=== PATIENT | female | born 1980 | race Caucasian/White ===

== ENCOUNTER 2019-12-19 00:55 | Emergency (ER) | payer BC, OTHER ==
[~2019-12-19] VITALS: Ht 172.7 cm; Wt 86.3 kg
[2019-12-19 01:56] LABS: CLARITY,URINE HAZY; COLOR,URINE ORANGE; RBC,URINE >40 /HPF (0-2)
[2019-12-19 01:57] LABS: BACTERIA,URINE FEW /HPF (0-FEW); SQUAMOUS EPITHELIAL CELL,UR FEW /LPF
[2019-12-19] MEDS ORDERED: IV NORMAL SALINE 1,000ML 1,000 ML IV ONE (02:00)
--- NOTE | 2019-12-19 02:02 | PHYS DOC ---
General Adult EDM: Chief Complaint: ABDOMINAL PAIN HPI: HPI: 39-year-old female presents with urinary retention and dysuria. The patient had urinary frequency all day yesterday. Today she has had urinary retention. She does not feel like she is been able to pee since 4 PM. Every time she tries to go she has very little output. She also took Azo today. She has had urinary tract infection in the past, but they have not been quite this painful. She has left flank pain which was exacerbated by the drive over to the emergency room. No history of kidney stones. Denies fever or chills. Review of Systems: Review of Systems: Constitutional: Denies fever or chills Eyes: Denies change in visual acuity HENT: Denies nasal congestion or sore throat Respiratory: Denies cough or shortness of breath Cardiovascular: Denies chest pain or edema GI: Denies abdominal pain, nausea, vomiting, bloody stools or diarrhea : Dysuria, urinary retention, left flank pain Musculoskeletal: Denies back pain or joint pain Integument: Denies rash Neurologic: Denies headache, focal weakness or sensory changes Endocrine: Denies polyuria or polydipsia Lymphatic: Denies swollen glands Psychiatric: Denies depression or anxiety Heart Score: Risk Factors: Risk Factors: DM, Current or recent (<one month) smoker, HTN, HLP, family history of CAD, obesity. Risk Scores: Score 0 - 3: 2.5% MACE over next 6 weeks - Discharge Home Score 4 - 6: 20.3% MACE over next 6 weeks - Admit for Clinical Observation Score 7 - 10: 72.7% MACE over next 6 weeks - Early Invasive Strategies Allergies: Allergies: Allergies Coded Allergies Type Severity Reaction Last Updated Verified doxycycline Allergy Unknown 12/19/19 Yes prochlorperazine Allergy Unknown 12/19/19 Yes sulfamethoxazole Allergy Unknown 12/19/19 Yes trimethoprim Allergy Unknown 12/19/19 Yes Physical Exam: PE: Constitutional: Well developed, well nourished, no acute distress, non-toxic appearance. [] HENT: Normocephalic, atraumatic, bilateral external ears normal, oropharynx moist, no oral exudates, nose normal. [] Eyes: PERRLA, EOMI, conjunctiva normal, no discharge. [] Neck: Normal range of motion, no tenderness, supple, no stridor. [] Cardiovascular:Heart rate regular rhythm, no murmur [] Lungs & Thorax: Bilateral breath sounds clear to auscultation [] Abdomen: Bowel sounds normal, soft, no tenderness, no masses, no pulsatile masses. [] Skin: Warm, dry, no erythema, no rash. [] Back: No tenderness, left CVA tenderness. [] Extremities: No tenderness, no cyanosis, no clubbing, ROM intact, no edema. [] Neurologic: Alert and oriented X 3, normal motor function, normal sensory function, no focal deficits noted. [] Psychologic: Affect normal, judgement normal, mood normal. [] Current Patient Data: Labs: Laboratory Tests Test 12/19/19 01:15 Urine Collection Type U cath Urine Color Dodson Urine Clarity Hazy Urine pH Urine Specific Hammond Urine Protein (NEG-TRACE) Urine Glucose (UA) mg/dL (NEG) Urine Ketones (Stick) mg/dL (NEG) Urine Blood (NEG) Urine Nitrite (NEG) Urine Bilirubin (NEG) Urine Urobilinogen Dipstick mg/dL (0.2 mg/dL) Urine Leukocyte Esterase (NEG) Urine RBC >40 /HPF (0-2) Urine WBC 1-4 /HPF (0-4) Urine Squamous Epithelial Cells Few /LPF Urine Bacteria Few /HPF (0-FEW) EKG: EKG: [] Radiology/Procedures: Radiology/Procedures: [] Impressions: CT abdomen and pelvis without contrast PQRS statement: CT scans at this facility use dose reduction including either automated exposure control, iterative reconstructions, and /or weight based radiation dosing via mA and kV modification when appropriate to reduce radiation dose to as low as reasonably achievable. HISTORY: Left flank pain. Abdomen findings: Lung bases unremarkable. Disc bulges lower lumbar spine with spinal canal stenoses L4-5 and L5-S1. Liver, gallbladder, pancreas, adrenal glands and kidneys are unremarkable. There is limited visualization of the distal ureters due to surrounding densities of pelvic small bowel loops and pelvic vasculature, in light of this at the region of the distal left ureter there may be a 3 mm distal ureteral calculus on image 127, there is no ureteral dilation or hydronephrosis or perinephric edema evident. Appendix is negative. Subcentimeter right lower quadrant mesenteric lymph nodes may be reactive or due to low-grade mesenteric adenitis no inflammatory change evident of the mesentery. No abdominal fluid. Pelvis findings: 2.5 cm left ovarian fluid density most likely a follicle or cyst. Right ovary, uterus, rectum unremarkable. Catheter in the bladder no bladder calculi. Bones unremarkable. Numerous pelvic phleboliths. IMPRESSION: 1. 3 mm distal left ureteral calculus is suspected as described above. No hydronephrosis. 2. The appendix is negative. 3. 2.5 cm fluid density dominant follicle or cyst of the left ovary. Electronically signed by: Eleuterio Kramer MD (12/19/2019 2:33 AM) [facility] DICTATED AND SIGNED BY: ELEUTERIO KRAMER MD DATE: 12/19/19 023 CC: DYLON ABAD; FUAD SEBASTIAN DO ~ Course & Med Decision Making: Course & Med Decision Making Pertinent Labs and Imaging studies reviewed. (See chart for details) The patient CT scan shows a distal 3 mm stone that is nonobstructing. The size is likely to pass. I have given the patient a liter of normal saline. Given her use of Azo, the urinalysis results are not reliable. Given her symptoms, I will treat her with Keflex for 5 days. I have encouraged lots of fluid intake. She is stable for discharge at this time. [] Dragon Disclaimer: Dragdemetrice Disclaimer: This electronic medical record was generated, in whole or in part, using a voice recognition dictation system. Departure Departure: Impression: Primary Impression: Ureterolithiasis Additional Impression: UTI (urinary tract infection) Disposition: HOME/RESIDENCE PRIOR TO ADM Condition: STABLE Referrals: DYLON ABAD (PCP) Patient Instructions: Kidney Stones, [id number] Scripts Hydrocodone Bit/Acetaminophen (NORCO 5-325 TABLET) 1 Each Tablet 1 TAB PO PRN Q6HRS PRN for PAIN, #14 TAB 0 Refills Prov: FUAD SEBASTIAN DO 12/19/19 Cephalexin (KEFLEX) 500 Mg Capsule 1 CAP PO TID for UTI for 5 Days, #15 CAP 0 Refills Prov: FUAD SEBASTIAN DO 12/19/19 FUAD SEBASTIAN DO Dec 19, 2019 02:02
[2019-12-19 02:24] LABS: BASO # 0.1 x10^3/uL (0.0-0.2); BASO % 1 % (0-3); EOS # 0.1 x10^3/uL (0.0-0.7); EOS % 1 % (0-3); HEMATOCRIT 35.5 % (36.0-47.0); HEMOGLOBIN 11.4 g/dL (12.0-15.5); LYMPH # 2.1 x10^3/uL (1.0-4.8); LYMPH % 32 % (24-48); MEAN CORPUSCULAR HEMOGLOBIN 27 pg (25-35); MEAN CORPUSCULAR HGB CONC 32 g/dL (31-37); MEAN CORPUSCULAR VOLUME 83 fL (79-100); MONO # 0.7 x10^3/uL (0.0-1.1); MONO % 11 % (0-9); NEUT # 3.6 x10^3uL (1.8-7.7); NEUT % 55 % (31-73); PLATELET COUNT 247 x10^3/uL (140-400); RED BLOOD COUNT 4.26 x10^6/uL (3.50-5.40); RED CELL DISTRIBUTION WIDTH 13.5 % (11.5-14.5); WHITE BLOOD COUNT 6.5 x10^3/uL (4.0-11.0)
[2019-12-19 02:33] LABS: CALCIUM 9.2 mg/dL (8.5-10.1); CREATININE 0.9 mg/dL (0.6-1.0); GFR 69.7; POTASSIUM 3.7 mmol/L (3.5-5.1)
--- NOTE | 2019-12-19 02:36 | RAD ---
CT abdomen and pelvis without contrast PQRS statement: CT scans at this facility use dose reduction including either automated exposure control, iterative reconstructions, and /or weight based radiation dosing via mA and kV modification when appropriate to reduce radiation dose to as low as reasonably achievable. HISTORY: Left flank pain. Abdomen findings: Lung bases unremarkable. Disc bulges lower lumbar spine with spinal canal stenoses L4-5 and L5-S1. Liver, gallbladder, pancreas, adrenal glands and kidneys are unremarkable. There is limited visualization of the distal ureters due to surrounding densities of pelvic small bowel loops and pelvic vasculature, in light of this at the region of the distal left ureter there may be a 3 mm distal ureteral calculus on image 127, there is no ureteral dilation or hydronephrosis or perinephric edema evident. Appendix is negative. Subcentimeter right lower quadrant mesenteric lymph nodes may be reactive or due to low-grade mesenteric adenitis no inflammatory change evident of the mesentery. No abdominal fluid. Pelvis findings: 2.5 cm left ovarian fluid density most likely a follicle or cyst. Right ovary, uterus, rectum unremarkable. Catheter in the bladder no bladder calculi. Bones unremarkable. Numerous pelvic phleboliths. IMPRESSION: 1. 3 mm distal left ureteral calculus is suspected as described above. No hydronephrosis. 2. The appendix is negative. 3. 2.5 cm fluid density dominant follicle or cyst of the left ovary. Electronically signed by: Cody Kramer MD (12/19/2019 2:33 AM) [facility]
[2019-12-19 02:39] LABS: ALBUMIN 3.5 g/dL (3.4-5.0); ALBUMIN/GLOBULIN RATIO 1.1 (1.0-1.7); TOTAL BILIRUBIN 0.3 mg/dL (0.2-1.0); TOTAL PROTEIN 6.8 g/dL (6.4-8.2)
[2019-12-19] MEDS ORDERED: CEPH-264 PO (02:42)
[2019-12-19] MEDS ORDERED: HYDR-3165 PO (02:43)
[2019-12-19] MEDS ORDERED: KETOROLAC 30 MG/ML VIAL. ONE (02:54)
[2019-12-19] MEDS ORDERED: CEPHALEXIN 250 MG CAPSULE ONE (02:54)
[2019-12-19 03:00] VITALS: BP 135/84
[2019-12-19] MEDS ORDERED: KETOROLAC 30 MG/ML VIAL. IVP ONE (03:00)
[2019-12-19] MEDS ORDERED: CEPHALEXIN 250 MG CAPSULE PO ONE (03:00)
== END 2019-12-19 03:20 | disposition home or self-care (01) ==
LOC: ER 00:55
DX: N20.1 Calculus of ureter (principal); N39.0 Urinary tract infection, site not specified; Z87.442 Personal history of urinary calculi; Z88.1 Allergy status to other antibiotic agents; Z88.8 Allergy status to other drugs, medicaments and biological substances
CPT/HCPCS: 36415; 51702; 74176; 80053; 81001; 85025; 96361; 96374; 99284; J1885; J7030

== ENCOUNTER → 2020-01-03 | Outpatient (CLI) | payer OTHER ==
[2019-12-19 03:00] VITALS: BP 135/84
[~2020-01-03] MED LIST: CEPH-264 PO; HYDR-3165 PO
--- NOTE | 2020-01-03 09:13 | RAD ---
CT Abdomen and Pelvis without contrast History: Kidney stone Technique: Noncontrast CT imaging was performed of the abdomen and pelvis. Multiplanar images are reviewed. Exposure: One or more of the following individualized dose reduction techniques were utilized for this examination: 1. Automated exposure control 2. Adjustment of the mA and/or kV according to patient size 3. Use of iterative reconstruction technique. Comparison: December 19, 2019 Findings: There is some motion. There is no hydronephrosis or renal calculus. There are again multiple phleboliths in the pelvis. A previously seen small calculus in the left pelvis is no longer visualized and probably due to passage of distal ureteral calculus. Previously seen Chambers catheter has been removed. Accurate evaluation of abdominal visceral organs is limited without intravenous contrast. There is no obvious abnormality of the spleen, liver, or pancreas. Gallbladder is present without obvious intraluminal abnormality by CT. There is no adrenal nodularity. Accurate evaluation of bowel is limited without oral contrast. There is no significant free air, free fluid, bowel dilatation. There is mild colonic diverticulosis. Normal caliber appendix is visualized without adjacent inflammatory change. There is retained stool greater of the distal sigmoid colon to rectum. There are again several nonspecific mesenteric nodes although not considered significantly enlarged, largest right lower quadrant about 0.7 cm short axis dimension. Previously seen hypodense lesion of the left adnexa smaller, now about 1.2 cm versus previously about 2 cm. There is another focus of hypodensity of the left adnexa better seen on coronal images about 1.2 cm inferiorly which is fairly similar. There is inferior lumbar facet degenerative change. Impression: 1. Previously seen distal left ureteral calculus is no longer visualized. There is no hydronephrosis or renal calculus. 2. There is retained stool greater of the distal sigmoid colon and rectum. 3. Dominant hypodense presumable cyst of the left adnexa is smaller, another focus stable. Electronically signed by: Laith Harrison MD (01/03/2020 9:10 AM) [facility]
== END ==
LOC: CT 08:25
PROVIDERS: ATTEND Urology
DX: N20.1 Calculus of ureter (principal); K57.30 Diverticulosis of large intestine without perforation or abscess without bleeding; M47.816 Spondylosis without myelopathy or radiculopathy, lumbar region
CPT/HCPCS: 74176

== ENCOUNTER 2021-01-31 09:31 | Emergency (ER) | payer OTHER ==
[~2021-01-31] VITALS: Ht 172.7 cm; Wt 83.6 kg
[2021-01-31] MEDS ORDERED: IV NORMAL SALINE 1,000ML 1,000 ML IV ONE (10:00)
--- NOTE | 2021-01-31 10:27 | RAD ---
Single view of the chest. 01/31/2021 10:15 AM Indication: Reason: SOB, COVID + Comparison: Chest radiograph June 22, 2009 Findings: There is no focal consolidation. There is no pleural effusion or pneumothorax. The cardiome diastinal silhouette and pulmonary vasculature are within normal limits. No acute osseous abnormaliti es are seen. Impression: No evidence of acute cardiopulmonary process. Electronically signed by: Ricardo Augutse MD (01/31/2021 10:24 AM) [id number]
[2021-01-31 10:28] LABS: BASO % 1 % (0-3); EOS % 0 % (0-3); HEMATOCRIT 36.5 % (36.0-47.0); HEMOGLOBIN 11.9 g/dL (12.0-15.5); LYMPH # 1.2 x10^3/uL (1.0-4.8); LYMPH % 37 % (24-48); MEAN CORPUSCULAR HEMOGLOBIN 27 pg (25-35); MEAN CORPUSCULAR HGB CONC 33 g/dL (31-37); MEAN CORPUSCULAR VOLUME 83 fL (79-100); MONO # 0.7 x10^3/uL (0.0-1.1); MONO % 22 % (0-9); NEUT # 1.3 x10^3uL (1.8-7.7); NEUT % 40 % (31-73); PLATELET COUNT 200 x10^3/uL (140-400); RED CELL DISTRIBUTION WIDTH 13.7 % (11.5-14.5); WHITE BLOOD COUNT 3.3 x10^3/uL (4.0-11.0)
[2021-01-31 10:46] LABS: CALCIUM 9.3 mg/dL (8.5-10.1); CREATININE 0.7 mg/dL (0.6-1.0); GFR 92.7; POTASSIUM 3.9 mmol/L (3.5-5.1)
[2021-01-31 10:57] LABS: ALBUMIN 3.7 g/dL (3.4-5.0); ALBUMIN/GLOBULIN RATIO 1.3 (1.0-1.7); TOTAL BILIRUBIN 0.1 mg/dL (0.2-1.0); TOTAL PROTEIN 6.6 g/dL (6.4-8.2)
[2021-01-31 11:27] LABS: % LYMPHS 49 % (24-48); % MONOS 16 % (0-10); % SEGS 35 % (35-66); PLT ESTIMATE ADEQUATE (ADEQUATE)
--- NOTE | 2021-01-31 11:27 | PHYS DOC ---
Past History Past Medical History: Anxiety, Bipolar, Depression, Seizure Past Surgical History: Tubal ligation, Other Additional Past Surgical Histo: sinus surgery x2 Alcohol Use: Occasionally General Adult EDM: Chief Complaint: SHORTNESS OF BREATH HPI: HPI: 40-year-old female presents with shortness of breath. She is diagnosed Covid +2 days ago. She has been having symptoms for about 5 days. The patient is unvaccinated. She came in today because she felt a little lightheaded and felt more short of breath. She is concerned that her disease got worse and that she might have Covid pneumonia. She has had a low-grade fever 100.2 at home. She is taking Tylenol and ibuprofen for this. She has no other complaints this time. Review of Systems: Review of Systems: Constitutional: Denies fever or chills Eyes: Denies change in visual acuity HENT: Denies nasal congestion or sore throat Respiratory: Cough with shortness of breath Cardiovascular: Denies chest pain or edema GI: Denies abdominal pain, nausea, vomiting, bloody stools or diarrhea : Denies dysuria Musculoskeletal: Denies back pain or joint pain Integument: Denies rash Neurologic: Denies headache, focal weakness or sensory changes Endocrine: Denies polyuria or polydipsia Lymphatic: Denies swollen glands Psychiatric: Denies depression or anxiety Current Medications: Current Meds: Current Medications Medications (Trade) Dose Ordered Sig/Alexander Start Time Stop Time Status Last Admin Dose Admin Sodium Chloride 1,000 ml @ 1,000 mls/hr 1X ONCE 01/31/21 10:00 01/31/21 10:59 DC 01/31/21 10:19 1,000 MLS/HR Allergies: Allergies: Allergies Coded Allergies Type Severity Reaction Last Updated Verified doxycycline Allergy Unknown 01/31/21 Yes prochlorperazine Allergy Unknown 01/31/21 Yes sulfamethoxazole Allergy Unknown 01/31/21 Yes trimethoprim Allergy Unknown 01/31/21 Yes Physical Exam: PE: Constitutional: Well developed, well nourished, no acute distress, non-toxic appearance. [] HENT: Normocephalic, atraumatic, bilateral external ears normal, oropharynx moist, no oral exudates, nose normal. [] Eyes: PERRLA, EOMI, conjunctiva normal, no discharge. [] Neck: Normal range of motion, no tenderness, supple, no stridor. [] Cardiovascular: Heart rate regular rhythm, no murmur [] Lungs & Thorax: Bilateral breath sounds clear to auscultation [] Abdomen: Bowel sounds normal, soft, no tenderness, no masses, no pulsatile masses. [] Skin: Warm, dry, no erythema, no rash. [] Back: No tenderness, no CVA tenderness. [] Extremities: No tenderness, no cyanosis, no clubbing, ROM intact, no edema. [] Neurologic: Alert and oriented X 3, normal motor function, normal sensory function, no focal deficits noted. [] Psychologic: Affect normal, judgement normal, mood normal. [] Current Patient Data: Labs: Laboratory Tests Test 01/31/21 10:15 White Blood Count 3.3 x10^3/uL (4.0-11.0) L Red Blood Count 4.40 x10^6/uL (3.50-5.40) Hemoglobin 11.9 g/dL (12.0-15.5) L Hematocrit 36.5 % (36.0-47.0) Mean Corpuscular Volume 83 fL (79-100) Mean Corpuscular Hemoglobin 27 pg (25-35) Mean Corpuscular Hemoglobin Concent 33 g/dL (31-37) Red Cell Distribution Width 13.7 % (11.5-14.5) Platelet Count 200 x10^3/uL (140-400) Neutrophils (%) (Auto) 40 % (31-73) Lymphocytes (%) (Auto) 37 % (24-48) Monocytes (%) (Auto) 22 % (0-9) H Eosinophils (%) (Auto) 0 % (0-3) Basophils (%) (Auto) 1 % (0-3) Neutrophils # (Auto) 1.3 x10^3uL (1.8-7.7) L Lymphocytes # (Auto) 1.2 x10^3/uL (1.0-4.8) Monocytes # (Auto) 0.7 x10^3/uL (0.0-1.1) Eosinophils # (Auto) 0.0 x10^3/uL (0.0-0.7) Basophils # (Auto) 0.0 x10^3/uL (0.0-0.2) Platelet Estimate Pending Sodium Level 141 mmol/L (136-145) Potassium Level 3.9 mmol/L (3.5-5.1) Chloride Level 105 mmol/L (98-107) Carbon Dioxide Level 27 mmol/L (21-32) Anion Gap 9 (6-14) Blood Urea Nitrogen 11 mg/dL (7-20) Creatinine 0.7 mg/dL (0.6-1.0) Estimated GFR (Cockcroft-Gault) 92.7 BUN/Creatinine Ratio 16 (6-20) Glucose Level 97 mg/dL (70-99) Calcium Level 9.3 mg/dL (8.5-10.1) Total Bilirubin 0.1 mg/dL (0.2-1.0) L Aspartate Amino Transferase (AST) 9 U/L (15-37) L Alanine Aminotransferase (ALT) 23 U/L (14-59) Alkaline Phosphatase 38 U/L (46-116) L Troponin I High Sensitivity 6 ng/L (4-50) Total Protein 6.6 g/dL (6.4-8.2) Albumin 3.7 g/dL (3.4-5.0) Albumin/Globulin Ratio 1.3 (1.0-1.7) Vital Signs: Vital Signs Date Time Temp Pulse Resp B/P (MAP) Pulse Ox O2 Delivery O2 Flow Rate FiO2 01/31/21 09:56 98.4 87 22 130/80 (97) 100 Room Air EKG: EKG: Sinus rhythm, rate 87, normal axis, no ST elevation or depression. [] Radiology/Procedures: Radiology/Procedures: [] Impressions: Single view of the chest. 01/31/2021 10:15 AM Indication: Reason: SOB, COVID + Comparison: Chest radiograph June 22, 2009 Findings: There is no focal consolidation. There is no pleural effusion or pneumothorax. The cardiomediastinal silhouette and pulmonary vasculature are within normal limits. No acute osseous abnormalities are seen. Impression: No evidence of acute cardiopulmonary process. Electronically signed by: Ricardo Law MD (01/31/2021 10:24 AM) [id number] DICTATED AND SIGNED BY: RICARDO LAW MD DATE: 01/31/21 1023 CC: DYLON ABAD [facility]; FUAD SEBASTIAN DO ~MTH0 0 Heart Score: C/O Chest Pain: N/A Risk Factors: Risk Factors: DM, Current or recent (<one month) smoker, HTN, HLP, family history of CAD, obesity. Risk Scores: Score 0 - 3: 2.5% MACE over next 6 weeks - Discharge Home Score 4 - 6: 20.3% MACE over next 6 weeks - Admit for Clinical Observation Score 7 - 10: 72.7% MACE over next 6 weeks - Early Invasive Strategies Course & Med Decision Making: Course & Med Decision Making Pertinent Labs and Imaging studies reviewed. (See chart for details) The patient's EKG is unremarkable. Her chest x-ray is negative for acute findings. Her labs are unremarkable. The patient's symptoms are consistent with her COVID-19 diagnosis. I advised supportive care. She is also on a steroid taper and I have encouraged her to continue this. If her condition worsens, she will return to the emergency room. Her oxygen saturation is 100% on room air throughout her stay in the emergency room. She is stable for discharge at this time. [] Odilon Disclaimer: Odilon Disclaimer: This electronic medical record was generated, in whole or in part, using a voice recognition dictation system. Departure Departure: Impression: Primary Impression: COVID-19 Disposition: HOME / SELF CARE / HOMELESS Condition: STABLE Referrals: DYLON ABAD (PCP) Additional Instructions: You have been tested for or diagnosed with COVID-19. It is an infection caused by a new type of coronavirus. COVID-19 will cause cold-like or mild flu symptoms in most. It can cause more severe symptoms like problems breathing in some. There is no treatment for COVID-19. The body will clear the infection over time. Self-care will help to ease discomfort. Steps to Take: Self-Care Rest as needed. Healthy habits may help you feel better. Steps include: Choose healthy foods including fruits and vegetables. Drink water throughout the day. Get plenty of sleep each night. If you smoke, try to quit. It may ease breathing. Avoid alcohol. Keep Others Healthy The virus can spread to others. Droplets are released every time you sneeze or cough. The droplets can get into the mouth, nose, or eyes of people near you and lead to infection. To lower the chances of spreading COVID-19 to others: Stay at home until your doctor has said it is safe to leave. If you tested positive this will mean staying isolated until both of the following are true: At least 7 days have passed since the start of illness. You are free of fever for at least 72 hours without the use of medicine. During this time: - Avoid public areas, events, or transportation. Do not return to work or school until your doctor has said it is safe to do so. - Call ahead if you need to go to a medical center. Let them know you may have COVID-19. It will help them guide you where to go. They may also ask you to wear a facemask when you come to the office. - If you call for emergency medical services, let them know you may have COVID- 19. While at home: - Try to avoid close contact with others. Stay about 6 feet away. - If possible, spend most of your time in a separate room from others. - Use a face mask if you will be in close contact with others such as sharing a room or vehicle. - Have someone wipe down common surfaces in the home. Use household vendor representatives every day on areas like doorknobs, counters, or sinks. - Cough or sneeze into a tissue. Throw the tissue away right after use. If a tissue is not available, cough or sneeze into your elbow. - Wash your hands often. Wash them after sneezing or coughing. Use soap and water and wash for at least 20 seconds. Alcohol based hand white work cleaner can be used if soap and water is not available. - Do not prepare food for others. Avoid sharing personal items like forks, s poons, or toothbrushes. - Avoid close contact with pets while you are sick. There is no evidence of the virus passing to pets. This is a safety step until more is known about this virus. Isolation can be frustrating. Social interaction can help. Keep in touch with friends and family through phone and tech options. You can still interact with others in your home, just keep a safe distance of about 6 feet. Follow-up: Your doctors office will check in with you to see if there are any changes in your health. You may be asked to keep track of symptoms to share with them. They will also let you know when you are clear to be in public again. Problems to Look Out For: Contact your doctor if your recovery is not going as you expect. Get emergency care if you have problems such as: - Trouble breathing - Nonstop chest pain or pressure - Changes in awareness, confusion, or problems waking - Lips or face have bluish color - Worsening of symptoms If you think you have an emergency, call for emergency medical services right away. As taken from [facility] FUAD SEBASTIAN DO Jan 31, 2021 11:27
--- NOTE | 2021-01-31 11:44 | EKG ---
[address] [address] Test Date: 2021-01-31 Test Time: 10:03:30 Pat Name: VERONICA CORTES Department: Room: Gender: F Lead Shipper: : 1980 Requested By: FUAD SEBASTIAN Order Number: [id number] Reading MD: Wild Lewis Measurements Intervals [place] Rate: 87 P: 47 MA: 142 QRS: 90 QRSD: 116 T: 27 QT: 344 QTc: 420 Interpretive Statements SINUS RHYTHM NORMAL ECG RI6.02 No previous ECG available for comparison Electronically Signed On 02-02-2021 7:25:04 [employer]OM G[employer]MENT DESIGN[employer] by Wild Lewis
[2021-01-31 12:09] VITALS: BP 123/75
[2021-02-01] MEDS ORDERED: HYDR25TA PO (15:07)
== END 2021-01-31 12:09 | disposition home or self-care (01) ==
LOC: ER 09:31
DX: U07.1 COVID-19 (principal); Z88.1 Allergy status to other antibiotic agents; Z88.2 Allergy status to sulfonamides; Z98.51 Tubal ligation status
CPT/HCPCS: 36415; 71045; 80053; 84484; 85007; 85025; 93005; 96360; 96361; 99285; J7030

== ENCOUNTER 2021-02-01 14:36 | Emergency (ER) | payer OTHER ==
[~2021-02-01] VITALS: Ht 172.7 cm; Wt 85.7 kg
[2021-02-01] MEDS ORDERED: HYDR25TA PO (15:07)
--- NOTE | 2021-02-01 15:07 | PHYS DOC ---
Past History Past Medical History: Anxiety, Bipolar, Depression, Seizure Additional Past Medical Histor: COVID + Past Surgical History: Tubal ligation, Other Additional Past Surgical Histo: sinus surgery x2 Alcohol Use: Occasionally General Adult EDM: Chief Complaint: SHORTNESS OF BREATH HPI: HPI: 40-year-old female returns to the emergency room with COVID-19. I personally saw the patient yesterday. She was diagnosed with COVID-19 earlier this week. She presents today because she now has brain fog and a mild lightheaded feeling. She does not feel like eating or drinking very much. She denies worsening shortness of breath. She has no chest pain or diaphoresis. No significant fever. Review of Systems: Review of Systems: Constitutional: Body aches, fatigue. Eyes: Denies change in visual acuity HENT: Denies nasal congestion or sore throat Respiratory: Denies cough or shortness of breath Cardiovascular: Denies chest pain or edema GI: Denies abdominal pain, nausea, vomiting, bloody stools or diarrhea : Denies dysuria Musculoskeletal: Denies back pain or joint pain Integument: Denies rash Neurologic: Light headed. Denies focal weakness or sensory changes Endocrine: Denies polyuria or polydipsia Lymphatic: Denies swollen glands Psychiatric: Denies depression or anxiety Allergies: Allergies: Allergies Coded Allergies Type Severity Reaction Last Updated Verified doxycycline Allergy Unknown 01/31/21 Yes prochlorperazine Allergy Unknown 01/31/21 Yes sulfamethoxazole Allergy Unknown 01/31/21 Yes trimethoprim Allergy Unknown 01/31/21 Yes Physical Exam: PE: Constitutional: Well developed, well nourished, no acute distress, non-toxic appearance. [] HENT: Normocephalic, atraumatic, bilateral external ears normal, oropharynx moist, no oral exudates, nose normal. [] Eyes: PERRLA, EOMI, conjunctiva normal, no discharge. [] Neck: Normal range of motion, no tenderness, supple, no stridor. [] Cardiovascular: Heart rate regular rhythm, no murmur [] Lungs & Thorax: Bilateral breath sounds clear to auscultation [] Abdomen: Bowel sounds normal, soft, no tenderness, no masses, no pulsatile masses. [] Skin: Warm, dry, no erythema, no rash. [] Back: No tenderness, no CVA tenderness. [] Extremities: No tenderness, no cyanosis, no clubbing, ROM intact, no edema. [] Neurologic: Alert and oriented X 3, normal motor function, normal sensory function, no focal deficits noted. [] Psychologic: Affect normal, judgement normal, mood anxious. [] Current Patient Data: Vital Signs: Vital Signs Date Time Temp Pulse Resp B/P (MAP) Pulse Ox O2 Delivery O2 Flow Rate FiO2 02/01/21 14:36 98.5 85 18 115/65 (82) 100 Room Air EKG: EKG: [] Radiology/Procedures: Radiology/Procedures: [] Heart Score: C/O Chest Pain: N/A Risk Factors: Risk Factors: DM, Current or recent (<one month) smoker, HTN, HLP, family history of CAD, obesity. Risk Scores: Score 0 - 3: 2.5% MACE over next 6 weeks - Discharge Home Score 4 - 6: 20.3% MACE over next 6 weeks - Admit for Clinical Observation Score 7 - 10: 72.7% MACE over next 6 weeks - Early Invasive Strategies Course & Med Decision Making: Course & Med Decision Making Pertinent Labs and Imaging studies reviewed. (See chart for details) The patient just does not feel well. She has never felt this sick and it makes her nervous. She lives at home alone. She does not have a high level of medical knowledge. She is just concerned that all of the symptoms could mean she is getting worse. She continues to be 100% O2 on room air, normal heart rate. Her chest x-ray from yesterday was completely unremarkable. She really has not had a change in her symptoms except with a "brain fog". She denies any falls. She does not describe it as a headache. I talked with her about the symptoms and COVID-19 in general. She was reassured. She will consider buying an O2 sensor for home just to reassure herself. I will prescribe some hydroxyzine for her anxiety. She is stable for discharge at this time. [] Davidon Disclaimer: Odilon Disclaimer: This electronic medical record was generated, in whole or in part, using a voice recognition dictation system. Departure Departure: Impression: Primary Impression: COVID-19 Disposition: HOME / SELF CARE / HOMELESS Condition: STABLE Referrals: DYLON ABAD (PCP) Additional Instructions: You have been tested for or diagnosed with COVID-19. It is an infection caused by a new type of coronavirus. COVID-19 will cause cold-like or mild flu symptoms in most. It can cause more severe symptoms like problems breathing in some. There is no treatment for COVID-19. The body will clear the infection over time. Self-care will help to ease discomfort. Steps to Take: Self-Care Rest as needed. Healthy habits may help you feel better. Steps include: Choose healthy foods including fruits and vegetables. Drink water throughout the day. Get plenty of sleep each night. If you smoke, try to quit. It may ease breathing. Avoid alcohol. Keep Others Healthy The virus can spread to others. Droplets are released every time you sneeze or cough. The droplets can get into the mouth, nose, or eyes of people near you and lead to infection. To lower the chances of spreading COVID-19 to others: Stay at home until your doctor has said it is safe to leave. If you tested positive this will mean staying isolated until both of the following are true: At least 7 days have passed since the start of illness. You are free of fever for at least 72 hours without the use of medicine. During this time: - Avoid public areas, events, or transportation. Do not return to work or s [employer] until your doctor has said it is safe to do so. - Call ahead if you need to go to a medical center. Let them know you may have COVID-19. It will help them guide you where to go. They may also ask you to wear a facemask when you come to the office. - If you call for emergency medical services, let them know you may have COVID- 19. While at home: - Try to avoid close contact with others. Stay about 6 feet away. - If possible, spend most of your time in a separate room from others. - Use a face mask if you will be in close contact with others such as sharing a room or vehicle. - Have someone wipe down common surfaces in the home. Use household [employer] every day on areas like doorknobs, counters, or sinks. - Cough or sneeze into a tissue. Throw the tissue away right after use. If a tissue is not available, cough or sneeze into your elbow. - Wash your hands often. Wash them after sneezing or coughing. Use soap and water and wash for at least 20 seconds. Alcohol based hand belt cleaner can be used if soap and water is not available. - Do not prepare food for others. Avoid sharing personal items like forks, spoons, or toothbrushes. - Avoid close contact with pets while you are sick. There is no evidence of the virus passing to pets. This is a safety step until more is known about this virus. Isolation can be frustrating. Social interaction can help. Keep in touch with friends and family through phone and tech options. You can still interact with others in your home, just keep a safe distance of about 6 feet. Follow-up: Your doctors office will check in with you to see if there are any changes in your health. You may be asked to keep track of symptoms to share with them. They will also let you know when you are clear to be in public again. Problems to Look Out For: Contact your doctor if your recovery is not going as you expect. Get emergency care if you have problems such as: - Trouble breathing - Nonstop chest pain or pressure - Changes in awareness, confusion, or problems waking - Lips or face have bluish color - Worsening of symptoms If you think you have an emergency, call for emergency medical services right away. As taken from [facility] Hydroxyzine Hcl (HYDROXYZINE HCL) 25 Mg Tablet 1 TAB PO TID PRN for ANXIETY, #30 TAB Prov: FUAD SEBASTIAN DO 02/01/21 FUAD SEBASTIAN DO Feb 01, 2021 15:07
[2021-02-01 15:25] VITALS: BP 135/78
== END 2021-02-01 15:30 | disposition home or self-care (01) ==
LOC: ER 14:36
DX: U07.1 COVID-19 (principal); R06.02 Shortness of breath; Z88.2 Allergy status to sulfonamides; Z88.1 Allergy status to other antibiotic agents
CPT/HCPCS: 99283-25

== ENCOUNTER → 2021-03-10 | Outpatient (CLI) | payer OTHER ==
[~2021-03-10] MED LIST changes: +HYDR25TA PO
--- NOTE | 2021-03-10 17:08 | RAD ---
EXAM: Chest, 2 views. HISTORY: Congestion. Covid 19. COMPARISON: None. FINDINGS: 2 views of chest are obtained. There is no infiltrate, pleural effusion or pneumothorax. Th e heart is normal in size. IMPRESSION: No acute pulmonary finding. Electronically signed by: Yenny Ruiz MD (03/10/2021 5:06 PM) [id number]
== END ==
LOC: RAD 15:46
PROVIDERS: ATTEND Nurse Practitioner Family
DX: R05.9 Cough, unspecified (principal); R09.81 Nasal congestion; Z86.16 Personal history of COVID-19
CPT/HCPCS: 71046